=== PATIENT | female | born 1955 | race Caucasian/White ===

== ENCOUNTER 2024-05-02 16:14 | Inpatient (IN) | payer MEDICAID, OTHER ==
[~2024-05-02] VITALS: Ht 170.2 cm; Wt 119.7 kg
[2024-05-02] MEDS ORDERED: HYDR-3980 PO (19:56)
[2024-05-02] MEDS ORDERED: DIVA250T4 PO (19:56)
[2024-05-02] MEDS ORDERED: RISP2TAB5 PO (19:56)
[2024-05-02] MEDS ORDERED: CYCL5TAB PO (19:56)
[2024-05-02] MEDS ORDERED: LOPE2TAB25 PO (19:56)
[2024-05-02] MEDS ORDERED: OLAN15TA3 PO (19:56)
[2024-05-02] MEDS ORDERED: GLIP5TAB13 PO (19:56)
[2024-05-02] MEDS ORDERED: LORA-259 PO (19:56)
[2024-05-02] MEDS ORDERED: INSU100V28 (19:56)
[2024-05-02] MEDS ORDERED: METF-442 PO (19:56)
[2024-05-02] MEDS ORDERED: OLAN20TA3 PO (19:56)
[2024-05-02] MEDS ORDERED: LISI-782 PO (19:56)
[2024-05-02] MEDS ORDERED: HALOPERIDOL LACTATE 5 MG/1 ML VIAL ONE (21:38)
[2024-05-02] MEDS: HALOPERIDOL LACTATE 5 MG/1 ML VIAL IM ONE (21:40)
[2024-05-02 22:15] VITALS: BP 156/73; TEMP 97.6; O2SAT 100
[2024-05-02] MEDS: BLOOD SUGAR DIAGNOSTIC 1 EACH STRIP VI ONE (22:45)
[2024-05-02] MEDS ORDERED: MAG HYDROX/AL HYDROX/SIMETH 30 ML LIQUID UDC PO PRN (22:45)
[2024-05-02] MEDS ORDERED: ACETAMINOPHEN 325 MG TABLET PO PRN (22:45)
[2024-05-03] MEDS: TEMAZEPAM 7.5 MG CAPSULE PO PRN (00:48)
[2024-05-03] MEDS: LORAZEPAM 1 MG TABLET PO PRN ×2 (01:34→16:34)
[2024-05-03] MEDS ORDERED: DEXTROSE 50% 50 ML DISP.SYRIN IV PRN (02:15)
[2024-05-03] MEDS: BLOOD SUGAR DIAGNOSTIC 1 EACH STRIP VI SCH (07:30)
[2024-05-03 08:52] VITALS: BP 159/70; TEMP 97.8; O2SAT 95
[2024-05-03 16:04] VITALS: BP 158/78; TEMP 98.1; O2SAT 100
[2024-05-03] MEDS: INSULIN REGULAR, HUMAN 1000 UNIT/10 ML VIAL SQ PRN (17:17)
[2024-05-03 20:02] VITALS: BP_SYST 157; BP_SYST 158; BP_DIAS 81; BP_DIAS 88; TEMP 97.7; TEMP 97.8; O2SAT 95; O2SAT 97
[2024-05-03] MEDS: INSULIN REGULAR, HUMAN 300 UNITS/3 ML VIAL SQ PRN (20:36)
[2024-05-03] MEDS: DIVALPROEX 250 MG TABLET.DR PO SCH (21:13)
[2024-05-03] MEDS: OLANZAPINE 5 MG TABLET PO SCH (21:13)
[2024-05-03] MEDS: glipiZIDE 10 MG TABLET PO SCH (21:15)
[2024-05-04 08:02] LABS: BASOPHILS # (AUTO) 0.1 K/UL (0.0-0.2); BASOPHILS % (AUTO) 0.6 % (0.0-2.0); EOSINOPHILS # (AUTO) 0.3 K/uL (0.0-0.7); EOSINOPHILS % (AUTO) 3.2 % (0.0-7.0); HEMATOCRIT 30.8 % (31.2-41.9); HEMOGLOBIN 10.4 g/dL (10.9-14.3); LYMPHOCYTES # (AUTO) 2.2 K/uL (0.8-4.8); LYMPHOCYTES % (AUTO) 21.5 % (20.5-51.5); MEAN CORPUSCULAR HEMOGLOBIN 29.3 uug (24.7-32.8); MEAN CORPUSCULAR HGB CONC 34 g/dL (32.3-35.6); MEAN CORPUSCULAR VOLUME 86.7 fL (75.5-95.3); MONOCYTES # (AUTO) 0.7 K/uL (0.1-1.30); MONOCYTES % (AUTO) 7.3 % (0.0-11.0); NEUTROPHILS # (AUTO) 6.8 K/uL (1.8-8.9); NEUTROPHILS % (AUTO) 67.4 % (38.5-71.5); PLATELET COUNT (AUTO) 328 K/uL (179-408); RED BLOOD CELL COUNT(AUTO) 3.55 MIL/uL (3.63-4.92); RED CELL DISTRIBUTION WIDTH 14.7 % (12.3-17.7); WHITE BLOOD COUNT (AUTO) 10.1 K/uL (3.8-11.8)
[2024-05-04 08:04] VITALS: BP 150/72; TEMP 97.8; O2SAT 100
[2024-05-04] MEDS: LISINOPRIL 5 MG TABLET PO SCH (08:13)
[2024-05-04 08:18] LABS: DIFFERENTIAL COMMENT 1
[2024-05-04 08:45] LABS: ALBUMIN 3.2 g/dL (3.4-5.0); BILIRUBIN,TOTAL 0.6 mg/dL (0.2-1.0); CALCIUM 9.2 mg/dL (8.5-10.1); MAGNESIUM 1.3 mg/dL (1.8-2.4); PHOSPHOROUS 2.8 mg/dL (2.5-4.9); POTASSIUM 4.1 mmol/L (3.5-5.1); TOTAL PROTEIN, SERUM 8.2 g/dL (6.4-8.2)
[2024-05-04 08:49] LABS: THYROID STIMULATING HORMONE 1.369 mIU/mL (0.358-3.740)
[2024-05-04] MEDS: MAGNESIUM OXIDE 400 MG TABLET PO ONE (10:04)
[2024-05-04 16:04] VITALS: BP 118/42; TEMP 98.4; O2SAT 100
[2024-05-04 19:44] VITALS: BP 158/70; TEMP 98.2; O2SAT 100
[2024-05-04] MEDS: OLANZAPINE 5 MG TABLET PO SCH (20:26)
[2024-05-05] MEDS: TEMAZEPAM 7.5 MG CAPSULE PO PRN (01:10)
[2024-05-05 08:02] VITALS: BP 157/89; TEMP 97.6; O2SAT 98
[2024-05-05] MEDS: OLANZAPINE ZYDIS 5 MG TAB.RAPDIS PO PRN (08:15)
[2024-05-05] MEDS: DIVALPROEX 250 MG TABLET.DR PO SCH (12:31)
[2024-05-05 16:04] VITALS: BP 167/61; TEMP 98.1; O2SAT 100
[2024-05-05 20:00] VITALS: BP 147/69; TEMP 97.6; O2SAT 98
[2024-05-06 08:04] VITALS: BP 168/89; TEMP 98.6; O2SAT 100
[2024-05-06 16:04] VITALS: BP 179/91; TEMP 98; O2SAT 100
[2024-05-06] MEDS: METFORMIN HCL 500 MG TABLET PO SCH (16:57)
[2024-05-06 21:14] VITALS: BP 160/69; TEMP 98; O2SAT 96
[2024-05-06] MEDS: HYDROCODONE/APAP 10-325 MG TABLET PO PRN (23:07)
[2024-05-07 07:30] VITALS: BP 164/62; TEMP 98.4; O2SAT 99
[2024-05-07 16:00] VITALS: BP 164/62; TEMP 98.4; O2SAT 99
[2024-05-07 20:17] VITALS: BP 164/81; TEMP 98.1; O2SAT 94
[2024-05-07] MEDS: METOPROLOL TARTRATE 25 MG TABLET PO SCH (22:14)
[2024-05-08 07:50] VITALS: BP 149/72; TEMP 97.6; O2SAT 99
[2024-05-08] MEDS: METFORMIN HCL 500 MG TABLET PO SCH (08:38)
[2024-05-08] MEDS: LISINOPRIL 10 MG TABLET PO SCH (08:38)
[2024-05-08 15:14] VITALS: BP 145/54; TEMP 98.1; O2SAT 95
[2024-05-08 20:00] VITALS: BP 152/66; TEMP 98.4; O2SAT 99
[2024-05-08] MEDS: MAGNESIUM HYDROXIDE 30 ML LIQUID UDC PO PRN (22:45)
[2024-05-09 08:12] VITALS: BP 147/56; TEMP 98.4; O2SAT 98
[2024-05-09 16:12] VITALS: TEMP 98; O2SAT 98
[2024-05-09 20:00] VITALS: BP 158/70; TEMP 97.7; O2SAT 96
[2024-05-09] MEDS: OLANZAPINE 2.5 MG TABLET PO SCH (20:56)
[2024-05-10 08:08] VITALS: BP 169/78; TEMP 97.4; O2SAT 95
[2024-05-10 09:43] LABS: BASOPHILS % (AUTO) 0.6 % (0.0-2.0); EOSINOPHILS # (AUTO) 0.3 K/uL (0.0-0.7); EOSINOPHILS % (AUTO) 4.1 % (0.0-7.0); HEMATOCRIT 30.4 % (31.2-41.9); HEMOGLOBIN 10.1 g/dL (10.9-14.3); LYMPHOCYTES # (AUTO) 1.5 K/uL (0.8-4.8); LYMPHOCYTES % (AUTO) 21.5 % (20.5-51.5); MEAN CORPUSCULAR HEMOGLOBIN 28.5 uug (24.7-32.8); MEAN CORPUSCULAR HGB CONC 33 g/dL (32.3-35.6); MEAN CORPUSCULAR VOLUME 86.1 fL (75.5-95.3); MONOCYTES # (AUTO) 0.6 K/uL (0.1-1.30); NEUTROPHILS # (AUTO) 4.7 K/uL (1.8-8.9); NEUTROPHILS % (AUTO) 65.8 % (38.5-71.5); PLATELET COUNT (AUTO) 291 K/uL (179-408); RED BLOOD CELL COUNT(AUTO) 3.53 MIL/uL (3.63-4.92); RED CELL DISTRIBUTION WIDTH 14.4 % (12.3-17.7); WHITE BLOOD COUNT (AUTO) 7.1 K/uL (3.8-11.8)
[2024-05-10 09:44] LABS: DIFFERENTIAL COMMENT 1
[2024-05-10 10:02] LABS: ALBUMIN 3.1 g/dL (3.4-5.0); BILIRUBIN,TOTAL 0.6 mg/dL (0.2-1.0); CALCIUM 9.2 mg/dL (8.5-10.1); CREATININE 1.3 mg/dL (0.6-1.3); POTASSIUM 4.7 mmol/L (3.5-5.1); TOTAL PROTEIN, SERUM 7.6 g/dL (6.4-8.2)
[2024-05-10 16:10] VITALS: BP 150/70; TEMP 98.1; O2SAT 100
[2024-05-10 22:10] VITALS: BP 162/89; TEMP 96.4; O2SAT 99
[2024-05-11 08:28] VITALS: BP 153/75; TEMP 97.8; O2SAT 100
[2024-05-11 15:07] VITALS: BP 150/63; TEMP 98; O2SAT 100
[2024-05-11 20:00] VITALS: BP 145/62; TEMP 97.9; O2SAT 98
[2024-05-12 08:10] VITALS: BP 138/74; TEMP 98.3; O2SAT 96
[2024-05-12 08:12] VITALS: BP 138/74; TEMP 98.3; O2SAT 96
[2024-05-12] MEDS: DIVALPROEX 250 MG TABLET.DR PO SCH (12:29)
[2024-05-12 16:08] VITALS: BP 127/80; TEMP 98.1; O2SAT 100
[2024-05-12] MEDS: DIVALPROEX 500 MG TABLET.DR PO SCH (17:22)
[2024-05-12 20:00] VITALS: BP 126/63; TEMP 98.1; O2SAT 96
[2024-05-12] MEDS: OLANZAPINE 5 MG TABLET PO SCH (20:41)
[2024-05-12] MEDS ORDERED: OLANZAPINE 2.5 MG TABLET PO SCH (21:00)
[2024-05-13 08:14] VITALS: BP 151/59; TEMP 97.6; O2SAT 95
[2024-05-13] MEDS: DIVALPROEX 500 MG TABLET.DR PO SCH (12:30)
[2024-05-13] MEDS ORDERED: DIVALPROEX 250 MG TABLET.DR PO SCH (13:00)
[2024-05-13 16:36] VITALS: BP 123/78; TEMP 98.1; O2SAT 100
[2024-05-13 19:56] VITALS: BP 131/68; TEMP 97.5; O2SAT 96
[2024-05-14 07:55] VITALS: BP 128/70; TEMP 97.5; O2SAT 97
[2024-05-14 08:10] LABS: BASOPHILS % (AUTO) 0.4 % (0.0-2.0); EOSINOPHILS # (AUTO) 0.2 K/uL (0.0-0.7); EOSINOPHILS % (AUTO) 2.8 % (0.0-7.0); HEMATOCRIT 31.9 % (31.2-41.9); HEMOGLOBIN 10.6 g/dL (10.9-14.3); LYMPHOCYTES # (AUTO) 2.2 K/uL (0.8-4.8); LYMPHOCYTES % (AUTO) 25.3 % (20.5-51.5); MEAN CORPUSCULAR HEMOGLOBIN 28.6 uug (24.7-32.8); MEAN CORPUSCULAR HGB CONC 33 g/dL (32.3-35.6); MEAN CORPUSCULAR VOLUME 86.2 fL (75.5-95.3); MONOCYTES # (AUTO) 0.7 K/uL (0.1-1.30); MONOCYTES % (AUTO) 8.1 % (0.0-11.0); NEUTROPHILS # (AUTO) 5.5 K/uL (1.8-8.9); NEUTROPHILS % (AUTO) 63.4 % (38.5-71.5); PLATELET COUNT (AUTO) 369 K/uL (179-408); RED BLOOD CELL COUNT(AUTO) 3.71 MIL/uL (3.63-4.92); RED CELL DISTRIBUTION WIDTH 14.7 % (12.3-17.7); WHITE BLOOD COUNT (AUTO) 8.7 K/uL (3.8-11.8)
[2024-05-14 08:23] LABS: DIFFERENTIAL COMMENT 1
[2024-05-14 08:43] LABS: ALBUMIN 3.2 g/dL (3.4-5.0); BILIRUBIN,TOTAL 0.6 mg/dL (0.2-1.0); CALCIUM 9.4 mg/dL (8.5-10.1); POTASSIUM 4.6 mmol/L (3.5-5.1); TOTAL PROTEIN, SERUM 8.5 g/dL (6.4-8.2)
[2024-05-14 15:32] VITALS: BP 118/49; TEMP 97.4; O2SAT 97
[2024-05-14] MEDS: NEOMY/BACITRAC/POLYMI OINT 28.35 GM TUBE TOP SCH (17:14)
[2024-05-14 20:00] VITALS: BP 154/72; TEMP 97.5; O2SAT 100
[2024-05-15 08:08] VITALS: BP 117/72; TEMP 97.8; O2SAT 95
[2024-05-15 16:12] VITALS: BP 145/88; TEMP 97.6; O2SAT 98
[2024-05-15 20:00] VITALS: BP 157/55; TEMP 97.4; O2SAT 98
[2024-05-16 08:12] VITALS: BP 154/72; TEMP 97.6; O2SAT 96
[2024-05-16 08:17] VITALS: BP 154/72
== END 2024-05-16 17:23 | DRG 750 ==
LOC: ER 16:14 → GPS 21:24
PROVIDERS: ADMIT Psychiatry & Neurology Psychosomatic Medicine; ATTEND Internal Medicine
DX: F25.0 Schizoaffective disorder, bipolar type (principal); D68.59 Other primary thrombophilia; E44.1 Mild protein-calorie malnutrition; G20.A1 Parkinson's disease without dyskinesia, without mention of fluctuations; E88.09 Other disorders of plasma-protein metabolism, not elsewhere classified; E11.65 Type 2 diabetes mellitus with hyperglycemia; E66.01 Morbid (severe) obesity due to excess calories; E78.1 Pure hyperglyceridemia; D64.9 Anemia, unspecified; M62.81 Muscle weakness (generalized); G89.29 Other chronic pain; M06.9 Rheumatoid arthritis, unspecified; Z68.41 Body mass index [BMI] 40.0-44.9, adult; Z74.09 Other reduced mobility; M15.9 Polyosteoarthritis, unspecified; Z91.83 Wandering in diseases classified elsewhere; Z88.2 Allergy status to sulfonamides; Z79.84 Long term (current) use of oral hypoglycemic drugs; Z79.4 Long term (current) use of insulin; Z79.899 Other long term (current) drug therapy; E83.42 Hypomagnesemia; R41.89 Other symptoms and signs involving cognitive functions and awareness; I10 Essential (primary) hypertension; Z91.81 History of falling; F41.9 Anxiety disorder, unspecified
CPT/HCPCS: 36415; 71045; 80164; 83735; 84100; 84443; 85025; 93005; J1630; J1815; J3490